=== PATIENT | male | born 2000 | race Caucasian/White ===

== ENCOUNTER 2021-06-29 23:46 | Emergency (ER) | payer OTHER ==
[~2021-06-29] VITALS: Ht 182.9 cm; Wt 79.4 kg
--- NOTE | 2021-06-30 00:14 | PHYS DOC ---
Past History Past Surgical History: No Surgical History Adult General Chief Complaint Chief Complaint: OTHER COMPLAINTS HPI HPI Patient is a 21-year-old male who presents with a chief complaint of concern for swallowing his retainer. States he cannot find his retainer and thinks he may have swallowed it but it is not sure. Denies any headache, pain or trouble swallowing, damage to the lips or mouth, chest pain, shortness of breath, wheezing, abdominal pain, nausea, vomiting. Denies any hematuria or blood in the stool. States he has no symptoms and feels well but is not sure where it went and wants to make sure he did not swallow it. Review of Systems Review of Systems Review of systems otherwise unremarkable except noted in HPI Allergies Allergies Allergies Coded Allergies Type Severity Reaction Last Updated Verified No Known Drug Allergies 06/30/21 No Physical Exam Physical Exam Constitutional: Well developed, well nourished, no acute distress, non-toxic appearance. [] HENT: Normocephalic, atraumatic, bilateral external ears normal, oropharynx moist, no oral exudates, nose normal. [] Eyes: conjunctiva normal, no discharge. [] Neck: Normal range of motion, no tenderness, supple, no stridor. [] Cardiovascular:Heart rate regular rhythm, no murmur [] Lungs & Thorax: Bilateral breath sounds clear to auscultation [] Abdomen: soft, no tenderness, no masses, no pulsatile masses. [] Skin: Warm, dry, no erythema, no rash. [] Back: no CVA tenderness. [] Extremities: No tenderness, ROM intact, no edema. [] Neurologic: Alert and oriented X 3, no focal deficits noted. [] Psychologic: Affect normal, judgement normal, mood normal. [] Current Patient Data Vital Signs Vital Signs Date Time Temp Pulse Resp B/P (MAP) Pulse Ox O2 Delivery O2 Flow Rate FiO2 06/29/21 23:57 97.7 78 14 126/77 (93) 97 Room Air EKG EKG [] Radiology/Procedures Radiology/Procedures [] Heart Score C/O Chest Pain: No Risk Factors: Risk Factors: DM, Current or recent (<one month) smoker, HTN, HLP, family history of CAD, obesity. Risk Scores: Risk Factors: DM, Current or recent (<one month) smoker, HTN, HLP, family history of CAD, obesity. Course & Med Decision Making Course & Med Decision Making Patient is a 21-year-old male who presents with concern for swelling his retainer Vital signs not concerning. Physical exam noted above. Patient denies need for pain or nausea medicine. Imaging notable for a small wire, approximately 1-1/2 cm long that is passed through the stomach into the duodenum. Patient asymptomatic. Discussed findings with patient. Advised to follow-up in the morning with his primary care physician and set up a follow-up appointment early next week for dasia-ray. Gave strict return precautions to the emergency department. Patient grateful, verbalized understanding and agree with plan of discharge. [] Dragon Disclaimer Dragon Disclaimer This electronic medical record was generated, in whole or in part, using a voice recognition dictation system. Departure Departure: Impression: Primary Impression: Swallowed foreign body Disposition: HOME / SELF CARE / HOMELESS Condition: GOOD Referrals: SUSANNA LARES (PCP) Patient Instructions: Swallowed Foreign Body, Adult Additional Instructions: Thanks for coming into the emergency department tonight and allowing us to take care of you. Please read the attached information very carefully to go over things we discussed. It is very important that you call your primary care physician early in the morning to set up a follow-up visit for early next week for reimaging. We want to make sure that this wire is moving through your stomach. There is a high chance that it was just moved your stomach and you will pass it in a bowel movement. Reasons to come back to the emergency department are abdominal pain, nausea, vomiting, or blood in the stool. Can also come back with any new or concerning symptoms that she may have that we dis cussed. Please be sure to drink plenty of fluids. STEPHANIE BOGGS MD Jun 30, 2021 00:14
[2021-06-30 00:39] VITALS: BP 122/76
--- NOTE | 2021-06-30 01:39 | RAD ---
EXAM: 1. CHEST ONE VIEW. 2. ABDOMEN ONE VIEW. HISTORY: Swallowed retainer. COMPARISON: None. FINDINGS: A 1.8 cm wire-like object projects over the distal stomach. There are no confluent infiltrates. There is no pneumothorax or pleural effusion. The heart is not en larged. There are no distended small bowel loops. There is gas distally. IMPRESSION: 1. A metallic foreign body projects over the distal stomach. Electronically signed by: Tonio Maciel MD (06/30/2021 1:36 AM) [facility]
== END 2021-06-30 00:42 | disposition home or self-care (01) ==
LOC: ER 23:46
DX: T18.8XXA Foreign body in other parts of alimentary tract, initial encounter (principal); X58.XXXA Exposure to other specified factors, initial encounter; Y93.89 Activity, other specified; Y92.89 Other specified places as the place of occurrence of the external cause; Y99.8 Other external cause status
CPT/HCPCS: 71045; 74018; 99284